=== PATIENT | female | born 1995 | race Caucasian/White ===

== ENCOUNTER 2025-05-18 13:38 | Emergency (ER) | payer BC ==
[~2025-05-18] VITALS: Ht 162.6 cm; Wt 56.0 kg
[2025-05-18 13:45] VITALS: O2SAT 98
[2025-05-18 15:12] LABS: BASOPHILS % 0.6 % (0.0-2.0); EOSINOPHILS % 0.7 % (0.0-5.0); HEMATOCRIT. 38.2 % (36.0-48.0); HEMOGLOBIN. 12.6 g/dL (12.0-16.0); LYMPHOCYTES % 13.9 % (20.0-50.0); MEAN PLATELET VOLUME 10.8 fl (7.4-10.4); MONOCYTES % 8.6 % (2.0-8.0); NEUTROPHILS % 76.2 % (40.0-76.0); PLATELET 184 x1000/uL (130-400); RED BLOOD CELL COUNT 4.35 mill/uL (4.2-5.4); RED CELL DISTRIBUTION WIDTH 13.0 % (11.6-14.6)
[2025-05-18 15:21] LABS: CLARITY URINE CLEAR (CLEAR); COLOR URINE YELLOW (YELLOW); GLUCOSE URINE NEGATIVE (NEGATIVE); KETONES URINE NEGATIVE (NEGATIVE); LEUKOCYTE ESTERASE URINE NEGATIVE (NEGATIVE); NITRITE URINE NEGATIVE (NEGATIVE); OCCULT BLOOD URINE NEGATIVE (NEGATIVE); PH URINE 7.5 (4.5-8.0); PROTEIN URINE NEGATIVE (NEGATIVE); SPECIFIC GRAVITY URINE 1.009 (1.005-1.030); UROBILINOGEN URINE 0.2 E.U./dL (0.2-1.0)
[2025-05-18 15:31] LABS: CREATININE 0.6 mg/dL (0.6-1.0); UREA NITROGEN BLOOD < 5 mg/dL (9-23)
[2025-05-18 16:35] LABS: HCG SCREEN NEGATIVE
[2025-05-18] MEDS: LEVETIRACETAM 500MG PREMIX 100 ML IV ONE (16:38)
[2025-05-18] MEDS: SODIUM CHLORIDE 0.9% 1,000 ML IV ONE (16:39)
[2025-05-18] MEDS: MAGNESIUM/ALUMINUM HYDROXIDE/SIMETHICONE 30ML UDC PO ONE (16:39)
[2025-05-18] MEDS: ONDANSETRON HCL 4MG/2ML INJ IV ONE (16:39)
[2025-05-18] MEDS ORDERED: KEPP500 MT (19:46)
[2025-05-18 20:06] VITALS: BP 105/62; PULSE 85; RESP 18; TEMP 36.7; O2SAT 99
== END 2025-05-18 20:07 | disposition home or self-care (01) ==
LOC: ER 13:38
DX: S09.90XA Unspecified injury of head, initial encounter (principal); R56.9 Unspecified convulsions; R11.0 Nausea; W19.XXXA Unspecified fall, initial encounter; Y93.01 Activity, walking, marching and hiking; Y92.89 Other specified places as the place of occurrence of the external cause; Y99.8 Other external cause status
CPT/HCPCS: 99285; 96365; 70450; 96366; 96375; 80048; 81003; 84703; 85025; 36415; 93005; J1953; J2405; J7030